=== PATIENT | female | born 1995 | race African-American/Black ===

== ENCOUNTER 2017-03-05 11:44 | Emergency (ER) | payer OTHER ==
[~2017-03-05] VITALS: Ht 170.2 cm; Wt 77.3 kg
[2017-03-05 12:07] VITALS: BP 149/97
== END 2017-03-05 12:50 | disposition left against medical advice (07) ==
LOC: EMS 11:47
DX: R11.10 Vomiting, unspecified (principal); R19.7 Diarrhea, unspecified; F17.210 Nicotine dependence, cigarettes, uncomplicated; Z53.21 Procedure and treatment not carried out due to patient leaving prior to being seen by health care provider

== ENCOUNTER 2017-11-15 16:19 | Emergency (ER) | payer OTHER ==
[~2017-11-15] VITALS: Ht 170.2 cm; Wt 77.3 kg
[2017-11-15] MEDS ORDERED: KETOROLAC TROMETHAMINE 30 MG/ML VIAL IM ONE (17:15)
[2017-11-15] MEDS ORDERED: METHOCARBAMOL 500 MG TABLET PO ONE (17:15)
[2017-11-15] MEDS ORDERED: LIDOCAINE HCL 5% TRANSDERMAL PATCH TD ONE (17:15)
[2017-11-15 18:58] VITALS: BP 123/77
== END 2017-11-15 19:13 | disposition home or self-care (01) ==
LOC: EMS 16:19
DX: M54.5 Low back pain (principal); R03.0 Elevated blood-pressure reading, without diagnosis of hypertension; F17.210 Nicotine dependence, cigarettes, uncomplicated; V43.62XA Car passenger injured in collision with other type car in traffic accident, initial encounter; Y93.89 Activity, other specified; Y92.89 Other specified places as the place of occurrence of the external cause; Y99.8 Other external cause status
CPT/HCPCS: 72100; 81025; 96372; 99284; J1885

== ENCOUNTER 2020-09-15 16:43 | Emergency (ER) | payer OTHER ==
[~2020-09-15] VITALS: Ht 175.3 cm; Wt 86.4 kg
[2020-09-15 19:39] VITALS: BP 128/86
== END 2020-09-15 19:53 | disposition home or self-care (01) ==
LOC: EMS 16:43
DX: S52.511A Displaced fracture of right radial styloid process, initial encounter for closed fracture (principal); M54.5 Low back pain; F17.210 Nicotine dependence, cigarettes, uncomplicated; V49.9XXA Car occupant (driver) (passenger) injured in unspecified traffic accident, initial encounter; Y93.89 Activity, other specified; Y92.89 Other specified places as the place of occurrence of the external cause; Y99.8 Other external cause status
CPT/HCPCS: 72100; 99284; 73110-TC; Z7502

== ENCOUNTER 2020-09-24 14:29 | Emergency (ER) | payer OTHER | END 2020-09-24 15:55 | disposition home or self-care (01) | LOC: EMS 14:35 | DX: S52.51 Fracture of radial styloid process (principal); F17.210 Nicotine dependence, cigarettes, uncomplicated; X58.XXXD Exposure to other specified factors, subsequent encounter | CPT/HCPCS: 99281; Z7502 ==

== ENCOUNTER 2020-09-29 19:53 | Emergency (ER) | payer OTHER ==
[~2020-09-29] VITALS: Ht 170.2 cm; Wt 86.4 kg
[2020-09-29 20:00] VITALS: BP 123/96
== END 2020-09-29 21:05 | disposition home or self-care (01) ==
LOC: EMS 19:53
DX: S62.101D Fracture of unspecified carpal bone, right wrist, subsequent encounter for fracture with routine healing (principal); X58.XXXD Exposure to other specified factors, subsequent encounter; F17.210 Nicotine dependence, cigarettes, uncomplicated
CPT/HCPCS: 99281; Z7502

== ENCOUNTER 2021-04-09 11:33 | Emergency (ER) | payer OTHER ==
[~2021-04-09] VITALS: Ht 170.2 cm; Wt 86.4 kg
[2021-04-09 12:09] LABS: COVID AG,FIA SOURCE NASOPHARYNGEAL
[2021-04-09 12:56] VITALS: BP 118/64
== END 2021-04-09 13:06 | disposition home or self-care (01) ==
LOC: EMS 11:33
DX: J30.9 Allergic rhinitis, unspecified (principal); F17.210 Nicotine dependence, cigarettes, uncomplicated; Z20.822 Contact with and (suspected) exposure to COVID-19
CPT/HCPCS: 99283

== ENCOUNTER 2021-05-26 14:50 | Emergency (ER) | payer OTHER ==
[~2021-05-26] VITALS: Ht 170.2 cm; Wt 81.8 kg
[2021-05-26 16:52] VITALS: BP 111/61
== END 2021-05-26 17:06 | disposition home or self-care (01) ==
LOC: EMS 14:54
DX: L03.114 Cellulitis of left upper limb (principal); F17.210 Nicotine dependence, cigarettes, uncomplicated
CPT/HCPCS: 99283

== ENCOUNTER 2022-08-29 04:31 | Emergency (ER) | payer OTHER ==
[~2022-08-29] VITALS: Ht 170.2 cm; Wt 90.9 kg
[2022-08-29 04:44] LABS: COVID AG,FIA SOURCE NASAL SWAB
[2022-08-29 05:10] LABS: INFLUENZA TYPE A NEGATIVE FOR TYPE A (NEGATIVE); INFLUENZA TYPE B NEGATIVE FOR TYPE B (NEGATIVE)
[2022-08-29 05:14] LABS: RAPID GROUP A STREP NEGATIVE (NEGATIVE)
[2022-08-29] MEDS ORDERED: LIDOCAINE 2% VISCOUS 15 ML SOLUTION UDCUP PO ONE (05:15)
[2022-08-29] MEDS ORDERED: DEXAMETHASONE SOD PHOS 4 MG/ML 5 ML VIAL IM ONE (05:30)
[2022-08-29] MEDS ORDERED: IBUPROFEN 600 MG TABLET PO ONE (05:30)
[2022-08-29] MEDS ORDERED: IBUP-1492 PO (05:39)
[2022-08-29 05:45] VITALS: BP 130/89
== END 2022-08-29 05:46 | disposition home or self-care (01) ==
LOC: EMS 04:32
DX: J03.90 Acute tonsillitis, unspecified (principal); F12.90 Cannabis use, unspecified, uncomplicated; F17.210 Nicotine dependence, cigarettes, uncomplicated; Z98.890 Other specified postprocedural states; Z20.822 Contact with and (suspected) exposure to COVID-19
CPT/HCPCS: 99283; 87426; 87430; 87804; 96372; J1100

== ENCOUNTER 2023-12-19 18:57 | Emergency (ER) | payer OTHER ==
[~2023-12-19 18:57] MED LIST: IBUP-1492 PO
== END 2023-12-19 19:57 | disposition left against medical advice (07) ==
LOC: EMS 19:28
DX: Z53.21 Procedure and treatment not carried out due to patient leaving prior to being seen by health care provider (principal)

== ENCOUNTER 2023-12-21 08:38 | Emergency (ER) | payer OTHER ==
[~2023-12-21] VITALS: Ht 170.2 cm; Wt 84.1 kg
[2023-12-21 08:41] VITALS: TEMP 98
[2023-12-21] MEDS: LIDOCAINE 1% 10 ML VIAL SQ ONE (09:02)
[2023-12-21] MEDS ORDERED: CEPH-558 PO (10:34)
[2023-12-21] MEDS ORDERED: SULF-261 PO (10:34)
[2023-12-21 10:50] VITALS: BP 129/95; PULSE 82; RESP 18
== END 2023-12-21 11:02 | disposition home or self-care (01) ==
LOC: EMS 10:01
DX: L02.414 Cutaneous abscess of left upper limb (principal); F12.90 Cannabis use, unspecified, uncomplicated; F17.210 Nicotine dependence, cigarettes, uncomplicated
CPT/HCPCS: 10060; 99282; J3490

== ENCOUNTER 2024-06-27 22:35 | Emergency (ER) | payer OTHER ==
[~2024-06-27] VITALS: Ht 170.2 cm; Wt 81.8 kg
[~2024-06-27 22:35] MED LIST changes: +CEPH-558 PO; +SULF-261 PO
[2024-06-28 00:45] VITALS: BP 121/68; PULSE 88; RESP 20; O2SAT 100
== END 2024-06-28 00:59 ==
LOC: EMS 22:36
DX: Z02.89 Encounter for other administrative examinations (principal); F12.90 Cannabis use, unspecified, uncomplicated; F17.210 Nicotine dependence, cigarettes, uncomplicated
CPT/HCPCS: 99283; Z7502